=== PATIENT | male | born 1995 | race African-American/Black ===

== ENCOUNTER 2020-04-25 17:01 | Emergency (ER) | payer SELFPAY ==
[~2020-04-25] VITALS: Ht 172.7 cm; Wt 70.5 kg
[2020-04-25 17:08] VITALS: BP 125/76
[2020-04-25] MEDS ORDERED: GENTAMICIN SULFATE 0.3% OPHTHALMIC SOLUTION 5 ML OD ONE (17:30)
== END 2020-04-25 18:00 | disposition home or self-care (01) ==
LOC: EMS 17:03
DX: H10.9 Unspecified conjunctivitis (principal)